=== PATIENT | male | born 1975 | race Caucasian/White ===

== ENCOUNTER 2018-02-03 14:32 | Observation (INO) ==
[2018-02-03] MEDS ORDERED: D5% in Water 1,000 ML IVC PRN (18:39)
[2018-02-03] MEDS ORDERED: Dextrose Gel 15 GM/37.5 ML TUBE PO PRN ×2 (18:39)
[2018-02-03] MEDS ORDERED: *HR* Dextrose 50 % in Water (Syg) 50 ML SYRINGE IVP PRN (18:39)
[2018-02-03] MEDS: 0.9 % Sodium Chloride w KCl 20 MEQ/1,000 ML MLS IVC SCH (18:55)
[2018-02-03 19:59] LABS: BUN/Creatinine Ratio 16 (6-26); Blood Urea Nitrogen 15 mg/dL (6-20); Calcium 8.7 mg/dL (8.6-10.3); Carbon Dioxide 26 mEq/L (23-29); Chloride 105 mEq/L (98-107); Glucose 156 mg/dL (70-105); Osmolality,Calculated 284 (280-300); Potassium 4.3 mEq/L (3.5-5.1); Sodium 135 mEq/L (136-145); eGFR For Non-African Americans > 60 (> 60)
[2018-02-03] MEDS ORDERED: Naloxone 0.4 MG/ML INJ IVP PRN (20:20)
[2018-02-03] MEDS ORDERED: Insulin DETEMIR 100 UNIT/ML X5UNITS SQ ONE (20:22)
--- NOTE | 2018-02-03 20:26 | Internal Med History&Physical ---
Addendum entered and electronically signed by Dm Khalil MD 02/04/18 05:30: I saw and evaluated the patient. I reviewed the residents note, performed my own physical examination and agree with findings and plan as documented in the residents note. Patient seen and examined on 02/03/18. Patient has improved blood sugars, now off insulin drip. Unclear what triggered his hyperglycemia. Does have history of HIV and hep C however. Will continue to monitor, repeat labs in the morning. Original Note: Date of Encounter: 02/04/18 Time of Encounter: 20:10 Internal Medicine - H&P: HPI Chief complaint: Hyperglycemia Admitted From: Hospital to Hospital Transfer Plans for Post Hospital Care: Home History of present illness: Mr. Duran is a 42 year old male with a history of diabetes mellitus type 2, central sleep apnea, HIV, hepatitis C, who presents to [facility] from [facility] for complaint of hyperglycemia for approximately 3 days. The patient s tates that for the past 3 days he has been experiencing elevated blood glucose which she cannot control with his usual insulin dosing. He states that he has used long-term insulin in the past and typically is able to control his blood glucose, however for the past 3 days his blood glucose has read high on his glucometer despite use of a sliding scale and normal insulin. He can think of no specific changes that would lead to this, although he does mention that he had colitis at the beginning of January which resulted in the use of antibiotics as well as a prednisone taper, however that finished by 01/17/18, and he feels that his blood glucose was controlled throughout the entirety of that taper. Since his blood glucose has been elevated, he has been experiencing symptoms such as poor appetite, abdominal pain with nausea, and blurred vision which has not resolved. He also says that he is had excessive thirst and polyuria especially at night. He denies any chest pains or shortness of breath, and he has not had any fevers, chills or sweats. Overall he says that his health has been otherwise well. Nothing seemed to help or make his hyperglycemia worse. The patient does have a history of HIV for which he has been receiving new treatment, however it is still poorly controlled. He states that he has had a high viral load recently, and has been leukopenic as well. In addition to this, he has a history of hepatitis C which he has not been treated for as his petrology teacher wants to wait for his HIV to be under control. He says that his DM has been well controlled on lantus and humalog, with his last A1c in 10.18 reading 6.4 At [facility], the patient had a BMP that demonstrated serum sodium 1:30, potassium 4.3, chloride 96, bicarbonate 27, BUN/creatinine 16, serum creatinine 1.4, serum glucose 632. Anion gap 7. CBC demonstrated leukocyte 2.6, hemoglobin 13.7, hematocrit 40.4, platelet 55. LFTs demonstrated albumin 3, alkaline phosphatase 553, AST 129, ALT 131, bilirubin 2.7. A chest x-ray completed at [facility] demonstrated no acute intrapulmonary process. Social History: Lives with Parents, Denies tobacco, alochol, drug use. Worked in a factory, now unemployed. Family History: Mother and father both have DM Past Med Surg Social Fam HX - Past Medical History Medical history: diabetes, renal disease Additional medical history: HEP C. HIV Psychiatric history: bipolar - Past Surgical History Additional surgical history: colonoscopy - Social History Smoking Status: Never smoker Alcohol use: none Drug use: none Internal Medicine - H&P: Meds Bictegrav/Emtricit/Tenofov Ala [Biktarvy 50-200-25 mg Tablet] 1 tab PO DAILY 02/03/18 [History] Buspirone HCl [Buspar] 15 mg PO BID 02/03/18 [History] Insulin Glargine [Lantus] 32 unit HS 02/03/18 [History] [place] Carbonate 300 mg PO BID 02/03/18 [History] Lurasidone HCl [Latuda] 60 mg PO DAILY 02/03/18 [History] Novolog Flexpen 1 unit ACHS 02/03/18 [History] Pantoprazole Sodium [Protonix] 40 mg PO DAILY 02/03/18 [History] hydrOXYzine HCl [Hydroxyzine HCl] 50 mg PO BID 02/03/18 [History] rOPINIRole [Requip] 0.25 mg PO HS 02/03/18 [History] traZODone [TraZODone] 50 mg PO HS 02/03/18 [History] 3 Allergy/AdvReac Type Severity Reaction Status Date / Time codeine Allergy Rash Verified 02/20/15 18:23 All Systems PM: A 10-system review of systems was performed and is negative for pertinent findings except as documented above in the HPI. Review of systems: Constitutional: Denies fevers, chills, weight loss, generalized fatigue Head/Neck: Denies MCCLELLAND, neck stiffness EENT: Denies rhinorrhea, congestion, sore throat. Admits to visual changes including blurriness CVS: Denies chest pain, palpitations, MURRY, orthopnea, edema, PND Pulm: Denies SOB, cough, sputum, hemoptysis, wheezing GI: Denies vomiting, diarrhea, constipation, melena, hematemasis. Admits to nausea and mild abdominal pain : Denies dysuria, urgency, hematuria. Endo: Admits to polyuria, polydipsia Heme: Denies ease of bleeding or bruising MSK: Denies joint pain, limited ROM Skin: Denies rashes, ulcers, color changes Neuro: Denies MCCLELLAND, paresthesias, focal deficits, ataxia - Constitutional Vitals: Temp Pulse Resp BP Pulse Ox 98.5 F 84 18 144/76 97 02/03/18 20:22 02/03/18 20:22 02/03/18 20:22 02/03/18 20:22 02/03/18 20:22 Exam: Gen: Vitals noted. No acute distress. Eyes: anicteric sclerae, moist conjunctivae; no lid-lag; Pupils equal and reactive to light HENT: Atraumatic; oropharynx clear with moist mucous membranes and no mucosal ulcerations; normal hard and soft palate Neck: Trachea midline; supple, no thyromegaly or lymphadenopathy Cardiac: RRR, no murmur, +S1/S2 Pulmonary: Coarse lung sounds bilaterally, no wheezes, rales or rhonchi, equal chest expansion Abdomen: soft, very minimal tenderness to palpation of the right upper quadrant, no guarding. No masses or hepatosplenomegaly MSK: ROM intact, no joint swelling noted Extremities: no BLE edema, nontender calf, no cyanosis or clubbing Skin: Normal temperature, turgor and texture; no rash, ulcers or subcutaneous nodules Neuro: moves all extremities, no focal deficits. Psych: Appropriate mood and behavior. A&Ox3 Internal Med - H&P Results - Labs CBC & Chem 7: 02/04/18 03:17 02/04/18 03:17 Labs: BMP 11/27/18 19:16 Sodium 135 L Potassium 4.3 Chloride 105 Carbon Dioxide 26 BUN 15 Creatinine 0.93 Glucose 156 H Calcium 8.7 - Assessment and plan (1) Type 2 diabetes mellitus with hyperosmolar nonketotic hyperglycemia Current Visit: Yes Status: Acute Assessment and plan: Diabetes mellitus with hyperosmolar hyperglycemic state Patient presented from [facility] with blood glucose 600, initially on insulin drip He has since been able to be transitioned off insulin drip to long-acting insulin with sliding scale insulin It is likely that his abdominal pain and visual disturbances are primarily caused by this extreme harsh elevation in blood glucose The etiology of this HHS is unclear at this time, he does not appear to have any serious infection Given his risk factors including leukopenia in conjunction with HIV and hep C, I will check lactic acid Currently there are no indications for antibiotics at this time Additionally the patient does not appear to be profoundly fluid depleted We will continue long-acting insulin with sliding scale insulin Continue IV fluids with potassium at 100 mL an hour Monitor POC Glucose ACHS (2) HIV (human immunodeficiency virus infection) Current Visit: Yes Status: Acute Assessment and plan: HIV with leukopenia and thrombocytopenia Currently afebrile, no evidence of overlying infection We will continue home antiretroviral therapy (3) Hepatitis C Current Visit: Yes Status: Chronic Assessment and plan: Hepatitis C with Transaminitis, known diagnosis TBili 2.7, Albumin 3, Alk Joseph 553, AST 129, ALT 131 from [facility] Patient has no jaundice or evidence of acute hepatic failure We will monitor him Qualifiers: Viral hepatitis chronicity: chronic Hepatic coma status: without hepatic coma Qualified Code(s): B18.2 - Chronic viral hepatitis C (4) Leukopenia Current Visit: Yes Status: Acute Assessment and plan: Leukopenia secondary to uncontrolled HIV infection Patient does not have fever at this time or evidence of overlying infection Qualifiers: Leukopenia type: neutropenia Neutropenia type: due to infection Qualified Code(s): D70.3 - Neutropenia due to infection (5) Thrombocytopenia Current Visit: Yes Status: Acute Assessment and plan: Thrombocytopenia susepcted secondary to uncontrolled HIV No evidence of bleeding at this time We will check coags in the morning Continue to monitor (6) Acute kidney injury Current Visit: Yes Status: Resolved Assessment and plan: LISANDRO present on arrival to [facility], Serum creatinine 1.4 --> 0.91 Now resolved Continue IVF (7) Bipolar depression Current Visit: No Status: Chronic Assessment and plan: Continue home meds (8) DVT prophylaxis Current Visit: Yes Status: Acute Assessment and plan: SCDs in setting of Thrombocytopenia - Time Spent With Patient Total time spent is greater than 50% in coordination of care (as documented) at patient's floor/unit and/or counseling patient:
[2018-02-03 20:27] LABS: Basophils % 0.7 %; Immature Granulocytes % 0.3 % (0-4)
[2018-02-03 20:29] LABS: Eosinophils # 0.1 K/mcL (0.0-0.6); Eosinophils % 2.7 %; Hematocrit 39.1 % (37.5-50.1); Immature Platelets 1.7 % (1.1-6.1); Lymphocytes # 1.1 K/mcL (0.6-4.6); Lymphocytes % 36.2 %; Mean Corpuscular HGB Conc 33.2 g/dL (31.6-35.5); Mean Corpuscular Hemoglobin 26.5 pg (28.0-33.3); Mean Corpuscular Volume 79.6 fL (83.0-100.0); Mean Platelet Volume 9.8 fL (9.4-12.4); Monocytes # 0.2 K/mcL (0.0-1.3); Neutrophils # 1.6 K/mcL (1.6-8.9); Red Blood Count 4.91 M/mcL (4.19-5.50); Red Cell Distribution Width 14.6 % (11.5-14.5); Segmented Neutrophils % 52.1 %
[2018-02-03 20:36] LABS: Platelet Count 58 K/mcL (140-400)
[2018-02-03 20:44] LABS: Albumin 3.4 g/dL (3.5-5.7); Albumin/Globulin Ratio 0.9 (1.1-2.2); Bilirubin,Indirect 1.3 mg/dL (0.0-1.2); Bilirubin,Total 2.3 mg/dL (0.3-1.0); Total Protein 7.4 g/dL (6.4-8.9)
[2018-02-03] MEDS ORDERED: rOPINIRole 0.25 MG TABLET PO SCH (21:00)
[2018-02-03] MEDS ORDERED: traZODone 50 MG TABLET PO SCH (21:00)
[2018-02-03] MEDS ORDERED: Insulin LISPRO 300 UNITS/3 ML VIAL SQ SCH (21:00)
[2018-02-03] MEDS ORDERED: Ondansetron 4 MG/2 ML VIAL IVP PRN (21:31)
[2018-02-03] MEDS ORDERED: *HR* Heparin 5,000 UNIT/ML VIAL SQ SCH (22:00)
[2018-02-03] MEDS: hydrOXYzine pamoate 25 MG CAPSULE PO SCH (22:07)
[2018-02-03] MEDS: Lithium Carbonate 300 MG CAPSULE PO SCH (22:07)
[2018-02-04 03:44] LABS: Basophils % 0.4 %; Eosinophils # 0.1 K/mcL (0.0-0.6); Eosinophils % 3.3 %; Hematocrit 36.9 % (37.5-50.1); Hemoglobin 12.3 g/dL (12.9-16.9); Immature Granulocytes % 1.2 % (0-4); Lymphocytes # 0.9 K/mcL (0.6-4.6); Lymphocytes % 37.7 %; Mean Corpuscular HGB Conc 33.3 g/dL (31.6-35.5); Mean Corpuscular Volume 80.9 fL (83.0-100.0); Mean Platelet Volume 10.2 fL (9.4-12.4); Monocytes # 0.2 K/mcL (0.0-1.3); Monocytes % 8.2 %; Neutrophils # 1.2 K/mcL (1.6-8.9); Red Blood Count 4.56 M/mcL (4.19-5.50); Red Cell Distribution Width 14.5 % (11.5-14.5); Segmented Neutrophils % 49.2 %
[2018-02-04 03:45] LABS: Platelet Count 50 K/mcL (140-400)
[2018-02-04 03:46] LABS: Prothrombin Time 11.7 Seconds (9.4-12.1)
[2018-02-04 04:00] LABS: BUN/Creatinine Ratio 16 (6-26); Blood Urea Nitrogen 15 mg/dL (6-20); Calcium 8.4 mg/dL (8.6-10.3); Carbon Dioxide 24 mEq/L (23-29); Chloride 107 mEq/L (98-107); Glucose 323 mg/dL (70-105); Osmolality,Calculated 289 (280-300); Potassium 4.4 mEq/L (3.5-5.1); Sodium 133 mEq/L (136-145); eGFR For Non-African Americans > 60 (> 60)
[2018-02-04] MEDS: 0.9 % Sodium Chloride w KCl 20 MEQ/1,000 ML MLS IVC SCH (04:26)
[2018-02-04 07:26] VITALS: BP 97/54
[2018-02-04] MEDS ORDERED: Insulin LISPRO 300 UNITS/3 ML VIAL SQ SCH (07:30)
[2018-02-04] MEDS: hydrOXYzine pamoate 25 MG CAPSULE PO SCH (07:54)
[2018-02-04] MEDS: Lithium Carbonate 300 MG CAPSULE PO SCH (07:54)
[2018-02-04] MEDS ORDERED: (Bictegrav/Emtricit/Tenofov Ala [Biktarvy 50-200-25 MG]) PO SCH (09:00)
--- NOTE | 2018-02-04 09:25 | Discharge Summary ---
- NOTES TO OUTPATIENT PROVIDER Notes to Outpatient Provider: Patient was admitted for hyperglycemia, no DKA, his insulin has been increased. Hyperglycemia is likely due to new use of HAART for HIV. No evidence on infection, no DKA. Follow up with PCP. Eductaed about plan of care, verbalized understanding Date of Encounter: 02/04/18 Time of Encounter: 09:24 - Discharge Diagnosis (1) DVT prophylaxis Priority: Primary Status: Resolved (2) HIV (human immunodeficiency virus infection) Priority: Secondary Status: Chronic (3) Leukopenia Priority: Secondary Status: Chronic Qualifiers: Leukopenia type: neutropenia Neutropenia type: due to infection Qualified Code(s): D70.3 - Neutropenia due to infection (4) Thrombocytopenia Priority: Secondary Status: Chronic (5) Type 2 diabetes mellitus with hyperosmolar nonketotic hyperglycemia Priority: Primary Status: Acute (6) Bipolar depression Priority: Secondary Status: Chronic (7) Hepatitis C Priority: Secondary Status: Chronic Qualifiers: Viral hepatitis chronicity: chronic Hepatic coma status: without hepatic coma Qualified Code(s): B18.2 - Chronic viral hepatitis C (8) Acute kidney injury Priority: Primary Status: Resolved Hospital course: Mr. Duran is a 42 year old male with DM on insulin, HIV/AIDS, Chronic Hep C, Bipolar disorder, sleep apnea Patient had just started on HAART less than a month ago. He reports noticing persistently elevated blood sugars in the 400s -500s on his glucometer at home, associated with polyuria , blurred vision, polydipsia, headaches and increased thirst. He reports compliance with his meds and diet , the only new development is his begining of HAART. He presented to [facility] ER where he was noted with a BMP that demonstrated serum sodium 1:30, potassium 4.3, chloride 96, bicarbonate 27, BUN/creatinine 16, serum creatinine 1.4, serum glucose 632. Anion gap 7. CBC demonstrated leukocyte 2.6, hemoglobin 13.7, hematocrit 40.4, platelet 55. LFTs demonstrated albumin 3, alkaline phosphatase 553, AST 129, ALT 131, bilirubin 2.7. A chest x-ray completed at [facility] demonstrated no acute intrapulmonary process. He was transferred here for further management Upon presentaton, FS had improved on insulin infusion and LISANDRO had resolved. He was observed overnight on his home doses of insulin Work up here essentially at baseline. He is known pancytopenia due to hep C and HIV He was seen and evaluated this mrn, he had no new complains, and his FS is currently between 200-300. His blurred vision is improved, he continues to have mild headaches improved with tylenol He is not in DKA and has no evidence of infection Vitals are stable and physical exam is unremarkable He is discharged home with recommendations to continue his sliding scale insulin, but increase glargine to 40 units HS. Follow up with PCP recommended Verbalized understanding of plan of care Discharge discussed with: patient, nurse - Time Spent with Patient Total time spent providing and/or coordinating discharge services: Less than 30 minutes - Discharge Medications Prescriptions: Insulin Glargine [Lantus] 40 unit SQ HS #2 vial Home Medications: Bictegrav/Emtricit/Tenofov Ala [Biktarvy 50-200-25 mg Tablet] 1 tab PO DAILY 02/03/18 [History] Buspirone HCl [Buspar] 15 mg PO BID 02/03/18 [History] [place] Carbonate 300 mg PO BID 02/03/18 [History] Lurasidone HCl [Latuda] 60 mg PO DAILY 02/03/18 [History] Novolog Flexpen 1 unit ACHS 02/03/18 [History] Pantoprazole Sodium [Protonix] 40 mg PO DAILY 02/03/18 [History] hydrOXYzine HCl [Hydroxyzine HCl] 50 mg PO BID 02/03/18 [History] rOPINIRole [Requip] 0.25 mg PO HS 02/03/18 [History] traZODone [TraZODone] 50 mg PO HS 02/03/18 [History] Acetaminophen [Tylenol] 500 mg PO Q6HR PRN tablet 02/04/18 [Rx] Insulin Glargine [Lantus] 40 unit SQ HS #2 vial 02/04/18 [Rx] Allergies/Adverse Reactions: Allergy/AdvReac Type Severity Reaction Status Date / Time codeine Allergy Rash Verified 02/20/15 18:23 Date of admission: 02/03/18 16:01 Primary care physician: Nina Roldan, Discharging clinician: Martin Lugo Anticipated date of discharge: 02/04/18 - Constitutional Vitals: Temp Pulse Resp BP Pulse Ox 97.8 F 58 18 97/54 97 02/04/18 07:18 02/04/18 07:43 02/04/18 07:18 02/04/18 07:18 02/04/18 07:18 General appearance: Present: A&O X 3, pleasant, no acute distress, obese Exam: see below - Head Head exam: Present: atraumatic, normocephalic - Eye Eye exam: Present: PERRL, conjuntiva pink, sclera anicteric Pupils: Present: PERRL - Neck Neck exam general surgery: Present: supple, trachea midline. Absent: lymphadenopathy - Respiratory Respiratory exam: Present: CTAB. Absent: accessory muscle use, rales, rhonchi, wheezes - Cardiovascular Cardiovascular exam: Present: RRR, +S1, +S2. Absent: diastolic murmur, gallop, rubs, systolic murmur - GI/Abdominal GI/Abdominal exam: Present: normal bowel sounds, soft, no peritoneal signs. A bsent: distended, tenderness - Extremities Exam Extremities exam: Present: warm, radial pulses palpable and symmetrical. Absent: calf tenderness, cyanotic, pedal edema - Neurological Exam Neurological exam: Present: CN II-XII intact, oriented X3, no focal deficits. Absent: pronater drift, facial droop, speech deficit - Skin Skin exam: Present: dry, intact - Patient Status Disposition: Home, Self-Care Condition: Good Functional capacity at discharge: independent ambulation Overall status at discharge: patient is back to baseline - Discharge Instructions Instructions: Diabetes Mellitus Type 2 in Adults (DC) Follow Up With: Nina Roldan CNP [Primary Care Provider] - 02/11/18 1:00 pm - Diet and Activity Activity: resume usual activities as tolerated Diet: diabetic diet
[2018-02-04] MEDS ORDERED: Insulin DETEMIR 100 UNIT/ML X5UNITS SQ SCH (21:00)
== END 2018-02-04 10:00 | disposition home or self-care (01) ==
LOC: 2NNU
PROVIDERS: ADMIT Internal Medicine Cardiovascular Disease; ATTEND Internal Medicine Cardiovascular Disease

== ENCOUNTER 2019-02-18 17:37 | Inpatient (IN) ==
[2019-02-18 18:09] LABS: Bilirubin,Urine Negative (Negative); Blood,Urine Negative (Negative); Clarity,Urine Clear (Clear); Color,Urine Yellow (Yellow); Glucose,Urine (UA) >=1000 mg/dL (Normal); Ketones,Urine Negative (Negative); Leukocyte Esterase,Urine Negative (Negative); Nitrite,Urine Negative (Negative); Protein,Urine Negative (Neg-Trace); Specific Gravity,Urine 1.029 (1.010-1.025); Urobilinogen,Urine Normal (Normal)
[2019-02-18 18:16] LABS: Amphetamine Screen,Urine Negative ng/mL (Cutoff=1000); Barbiturate Screen,Urine Negative ng/mL (Cutoff=200); Benzodiazepines Screen,Urine Negative ng/mL (Cutoff=200); Cannabinoid Screen,Urine Negative ng/mL (Cutoff = 50); Cocaine Screen,Urine Negative ng/mL (Cutoff= 300); Opiate Screen,Urine Negative ng/mL (Cutoff=300); Phencyclidine Screen,Urine Negative ng/mL (Cutoff=25)
[2019-02-18 18:19] LABS: Hemoglobin 14.6 g/dL (12.9-16.9); Immature Granulocytes % 0.4 % (0-4); Red Cell Distribution Width 13.6 % (11.5-14.5)
[2019-02-18 18:21] LABS: Basophils % 0.8 %; Eosinophils % 1.1 %; Hematocrit 41.7 % (37.5-50.1); Immature Platelets 1.5 % (1.1-6.1); Lymphocytes # 0.6 K/mcL (0.6-4.6); Lymphocytes % 23.4 %; Mean Corpuscular Hemoglobin 30.4 pg (28.0-33.3); Mean Corpuscular Volume 86.9 fL (83.0-100.0); Mean Platelet Volume 9.3 fL (9.4-12.4); Monocytes # 0.2 K/mcL (0.0-1.3); Monocytes % 6.5 %; Neutrophils # 1.8 K/mcL (1.6-8.9); Segmented Neutrophils % 67.8 %; White Blood Count 2.6 K/mcL (4.3-11.1)
[2019-02-18 18:22] LABS: Platelet Count 81 K/mcL (140-400)
[2019-02-18 18:40] LABS: Acetaminophen < 10 mcg/mL (10-20); BUN/Creatinine Ratio 10 (6-26); Blood Urea Nitrogen 12 mg/dL (6-20); Calcium 9.6 mg/dL (8.6-10.3); Carbon Dioxide 21 mEq/L (23-29); Chloride 103 mEq/L (98-107); Ethanol < 10 mg/dL (Less than 10); Glucose 251 mg/dL (70-105); Osmolality,Calculated 288 (280-300); Potassium 3.9 mEq/L (3.5-5.1); Salicylate < 2.5 mg/dL (15.0-30.0); Sodium 135 mEq/L (136-145); eGFR For African Americans > 60 (> 60); eGFR For Non-African Americans > 60 (> 60)
[2019-02-18] MEDS ORDERED: *HR* LORazepam 1 MG TABLET PO PRN (22:52)
[2019-02-18] MEDS ORDERED: hydrOXYzine pamoate 25 MG CAPSULE PO PRN (22:52)
[2019-02-18] MEDS ORDERED: Ibuprofen 400 MG TABLET PO PRN (22:52)
[2019-02-18] MEDS ORDERED: *HR* LORazepam 2 MG/ML VIAL IM PRN (22:52)
[2019-02-18] MEDS ORDERED: Haloperidol Lactate 5 MG/ML VIAL IM PRN (22:52)
[2019-02-18] MEDS ORDERED: Mag Hydrox/Al Hydrox/Simeth 30 ML UDC PO PRN (22:52)
[2019-02-18] MEDS: traZODone 50 MG TABLET PO PRN (23:19)
[2019-02-19] MEDS ORDERED: Lithium Carbonate 300 MG CAPSULE PO SCH ×2 (09:00→21:00)
[2019-02-19] MEDS: *HR* Metformin 500 MG TABLET PO SCH ×2 (09:32→17:54)
[2019-02-19] MEDS: Insulin DETEMIR 100 UNIT/ML X5UNITS SQ SCH (21:44)
[2019-02-19] MEDS: traZODone 50 MG TABLET PO PRN (21:46)
[2019-02-19] MEDS: hydrOXYzine pamoate 25 MG CAPSULE PO PRN (21:46)
[2019-02-19] MEDS: Lithium Carbonate 300 MG CAPSULE PO SCH (21:47)
[2019-02-20] MEDS: *HR* Metformin 500 MG TABLET PO SCH ×2 (09:52→17:47)
[2019-02-20] MEDS: Lithium Carbonate 300 MG CAPSULE PO SCH ×2 (09:53→21:29)
[2019-02-20] MEDS: hydrOXYzine pamoate 25 MG CAPSULE PO PRN (12:50)
[2019-02-20] MEDS: Insulin DETEMIR 100 UNIT/ML X5UNITS SQ SCH (22:00)
[2019-02-21] MEDS: *HR* Metformin 500 MG TABLET PO SCH ×2 (09:03→17:00)
[2019-02-21] MEDS: Lithium Carbonate 300 MG CAPSULE PO SCH ×2 (09:03→21:22)
[2019-02-21] MEDS: hydrOXYzine pamoate 25 MG CAPSULE PO PRN ×2 (17:00→21:22)
[2019-02-21] MEDS: Insulin DETEMIR 100 UNIT/ML X5UNITS SQ SCH (21:23)
[2019-02-22] MEDS: *HR* Metformin 500 MG TABLET PO SCH ×2 (08:52→17:31)
[2019-02-22] MEDS: Lithium Carbonate 300 MG CAPSULE PO SCH ×2 (08:52→21:15)
[2019-02-22] MEDS: Insulin DETEMIR 100 UNIT/ML X5UNITS SQ SCH (21:15)
[2019-02-22] MEDS: hydrOXYzine pamoate 25 MG CAPSULE PO PRN (21:15)
[2019-02-23] MEDS: Lithium Carbonate 300 MG CAPSULE PO SCH ×2 (08:30→21:03)
[2019-02-23] MEDS: *HR* Metformin 500 MG TABLET PO SCH ×2 (08:31→16:58)
[2019-02-23] MEDS: BuPROPion XL (24 HR) 150 MG TABLET PO SCH (09:46)
[2019-02-23] MEDS: hydrOXYzine pamoate 25 MG CAPSULE PO PRN ×2 (12:09→21:03)
[2019-02-23] MEDS: Insulin DETEMIR 100 UNIT/ML X5UNITS SQ SCH (21:05)
[2019-02-24] MEDS: Lithium Carbonate 300 MG CAPSULE PO SCH ×2 (08:49→21:32)
[2019-02-24] MEDS: *HR* Metformin 500 MG TABLET PO SCH ×2 (08:50→17:54)
[2019-02-24] MEDS: BuPROPion XL (24 HR) 150 MG TABLET PO SCH (08:50)
[2019-02-24] MEDS ORDERED: Ergocalciferol (VIT D2) 50,000 UNIT (1.25MG) CAP PO SCH (09:00)
[2019-02-24 11:00] LABS: BUN/Creatinine Ratio 18 (6-26); Blood Urea Nitrogen 17 mg/dL (6-20); Calcium 9.4 mg/dL (8.6-10.3); Carbon Dioxide 22 mEq/L (23-29); Chloride 104 mEq/L (98-107); Chol/HDL Ratio 5.8 (0-4.9); Cholesterol 169 mg/dL (< 200); Glucose 219 mg/dL (70-105); HDL Cholesterol 29 mg/dL (40-59); LDL Cholesterol,Calculated 90 mg/dL (0-99); Osmolality,Calculated 292 (280-300); Potassium 4.2 mEq/L (3.5-5.1); Sodium 137 mEq/L (136-145); Triglycerides 252 mg/dL (< 150); eGFR For African Americans > 60 (> 60); eGFR For Non-African Americans > 60 (> 60)
[2019-02-24 11:01] LABS: Thyroid Stimulating Hormone 2.038 mcIU/mL (0.340-5.600)
[2019-02-24 11:18] LABS: Estimated Average Glucose 186 mg/dl
[2019-02-24] MEDS: hydrOXYzine pamoate 25 MG CAPSULE PO PRN (21:32)
[2019-02-24] MEDS: Insulin DETEMIR 100 UNIT/ML X5UNITS SQ SCH (21:36)
[2019-02-25] MEDS: *HR* Metformin 500 MG TABLET PO SCH (08:55)
[2019-02-25] MEDS: BuPROPion XL (24 HR) 150 MG TABLET PO SCH (08:55)
[2019-02-25] MEDS: Lithium Carbonate 300 MG CAPSULE PO SCH (08:55)
[2019-02-25 09:32] VITALS: BP 123/89
== END 2019-02-25 12:20 | disposition home or self-care (01) | DRG 885 ==
LOC: 1ANU 17:37 → EMEROOARM 17:37 → 1ANU 22:14 → SUATTDRO 02-19 12:35
PROVIDERS: ADMIT Psychiatry & Neurology Psychiatry; ATTEND Psychiatry & Neurology Psychiatry

== ENCOUNTER 2019-07-01 09:40 | Inpatient (IN) ==
[2019-07-01] MEDS ORDERED: Isovue-370 500 ML BOTTLE IVP ONE (10:03)
[2019-07-01] MEDS ORDERED: Hyoscyamine 0.5 MG/ML MLS IVP ONE (10:05)
[2019-07-01 10:22] LABS: Bilirubin,Urine Negative (Negative); Blood,Urine Negative (Negative); Clarity,Urine Clear (Clear); Color,Urine Yellow (Yellow); Glucose,Urine (UA) >=1000 mg/dL (Normal); Ketones,Urine Negative (Negative); Leukocyte Esterase,Urine Negative (Negative); Nitrite,Urine Negative (Negative); Protein,Urine Negative (Neg-Trace); Specific Gravity,Urine > 1.030 (1.010-1.025); Urobilinogen,Urine Normal (Normal)
[2019-07-01] MEDS ORDERED: 0.9 % Sodium Chloride 1,000 ML IVC STA (10:38)
[2019-07-01 10:49] LABS: Hematocrit 39.4 % (37.5-50.1); Segmented Neutrophils % 69.7 %
[2019-07-01 10:51] LABS: Basophils % 0.5 %; Eosinophils % 1.4 %; Hemoglobin 12.5 g/dL (12.9-16.9); Immature Granulocytes % 0.5 % (0-4); Immature Platelets 1.3 % (1.1-6.1); Lymphocytes # 0.4 K/mcL (0.6-4.6); Lymphocytes % 19.2 %; Mean Corpuscular HGB Conc 31.7 g/dL (31.6-35.5); Mean Corpuscular Hemoglobin 28.6 pg (28.0-33.3); Mean Corpuscular Volume 90.2 fL (83.0-100.0); Mean Platelet Volume 9.1 fL (9.4-12.4); Monocytes # 0.2 K/mcL (0.0-1.3); Monocytes % 8.7 %; Neutrophils # 1.5 K/mcL (1.6-8.9); Red Blood Count 4.37 M/mcL (4.19-5.50); Red Cell Distribution Width 14.6 % (11.5-14.5); White Blood Count 2.2 K/mcL (4.3-11.1)
[2019-07-01 10:54] LABS: INR 1.1; Prothrombin Time 12.5 Seconds (9.4-12.1)
[2019-07-01 10:56] LABS: Platelet Count 66 K/mcL (140-400)
[2019-07-01 10:58] LABS: Alanine Aminotransferase 65 Units/L (7-52); Albumin 3.6 g/dL (3.5-5.7); Alkaline Phosphatase 217 Units/L (34-104); Aspartate Amino Transferase 80 Units/L (13-39); BUN/Creatinine Ratio 16 (6-26); Bilirubin,Direct 1.7 mg/dL (0.0-0.2); Bilirubin,Indirect 1.6 mg/dL (0.0-1.0); Bilirubin,Total 3.3 mg/dL (0.3-1.0); Blood Urea Nitrogen 16 mg/dL (6-20); Calcium 9.1 mg/dL (8.6-10.3); Carbon Dioxide 24 mEq/L (23-29); Chloride 108 mEq/L (98-107); Globulin 3.6 g/dL (2.4-3.5); Glucose 178 mg/dL (70-105); Lipase 31 Units/L (11-82); Osmolality,Calculated 292 (280-300); Potassium 4.1 mEq/L (3.5-5.1); Sodium 138 mEq/L (136-145); Total Protein 7.2 g/dL (6.4-8.9); eGFR For African Americans > 60 (> 60); eGFR For Non-African Americans > 60 (> 60)
[2019-07-01] MEDS ORDERED: Dicyclomine 20 MG/2 ML AMPUL IM ONE (11:13)
[2019-07-01] MEDS ORDERED: *HR* FentaNYL (PF) 100 MCG/2 ML VIAL IVP ONE (12:42)
[2019-07-01] MEDS ORDERED: Pantoprazole 40 MG VIAL IVP ONE (14:09)
[2019-07-01] MEDS ORDERED: Acetaminophen 325 MG TABLET PO PRN (14:29)
[2019-07-01] MEDS ORDERED: Naloxone 0.4 MG/ML INJ IVP PRN (14:29)
[2019-07-01] MEDS ORDERED: hydrOXYzine pamoate 25 MG CAPSULE PO PRN (14:36)
[2019-07-01] MEDS ORDERED: Dextrose Gel 15 GM/37.5 ML TUBE PO PRN ×2 (14:38)
[2019-07-01] MEDS ORDERED: *HR* Dextrose 50 % in Water (Syg) 50 ML SYRINGE IVP PRN (14:38)
[2019-07-01] MEDS ORDERED: D5% in Water 1,000 ML IVC PRN (14:38)
[2019-07-01] MEDS ORDERED: SODIUM CHLORIDE/NAHCO3/KCL/PEG 4,000 ML SOLN.RECON PO ONE (17:00)
[2019-07-01] MEDS: *HR* HYDROmorphone (PF) 1 MG/ML SYRINGE IVP PRN (17:18)
[2019-07-01] MEDS: Insulin LISPRO 300 UNITS/3 ML VIAL SQ SCH ×2 (17:43→20:31)
[2019-07-01] MEDS: rOPINIRole 0.25 MG TABLET PO SCH (20:16)
[2019-07-01] MEDS: QUEtiapine Fumarate 25 MG TABLET PO SCH (20:16)
[2019-07-01] MEDS: Lithium Carbonate 300 MG CAPSULE PO SCH (20:16)
[2019-07-01] MEDS: Lactulose Oral Soln 20 GM/30 ML UDC PO SCH (20:17)
[2019-07-01] MEDS ORDERED: Lactulose Oral Soln 20 GM/30 ML UDC PO SCH (21:00)
[2019-07-02 04:11] LABS: Eosinophils % 1.8 %
[2019-07-02 04:13] LABS: Alanine Aminotransferase 60 Units/L (7-52); Albumin 3.1 g/dL (3.5-5.7); Alkaline Phosphatase 182 Units/L (34-104); Aspartate Amino Transferase 82 Units/L (13-39); BUN/Creatinine Ratio 16 (6-26); Basophils % 0.6 %; Bilirubin,Direct 2.6 mg/dL (0.0-0.2); Bilirubin,Indirect 2.3 mg/dL (0.0-1.0); Bilirubin,Total 4.9 mg/dL (0.3-1.0); Blood Urea Nitrogen 16 mg/dL (6-20); Calcium 8.7 mg/dL (8.6-10.3); Carbon Dioxide 22 mEq/L (23-29); Chloride 108 mEq/L (98-107); Globulin 3.2 g/dL (2.4-3.5); Glucose 135 mg/dL (70-105); Hematocrit 35.7 % (37.5-50.1); Hemoglobin 11.4 g/dL (12.9-16.9); Immature Platelets 1.5 % (1.1-6.1); Lymphocytes # 0.4 K/mcL (0.6-4.6); Lymphocytes % 25.7 %; Magnesium 1.8 mg/dL (1.6-2.6); Mean Corpuscular HGB Conc 31.9 g/dL (31.6-35.5); Mean Corpuscular Hemoglobin 28.7 pg (28.0-33.3); Mean Corpuscular Volume 89.9 fL (83.0-100.0); Mean Platelet Volume 9.5 fL (9.4-12.4); Monocytes # 0.2 K/mcL (0.0-1.3); Monocytes % 9.4 %; Neutrophils # 1.1 K/mcL (1.6-8.9); Osmolality,Calculated 287 (280-300); Potassium 3.9 mEq/L (3.5-5.1); Red Blood Count 3.97 M/mcL (4.19-5.50); Red Cell Distribution Width 14.8 % (11.5-14.5); Segmented Neutrophils % 62.5 %; Sodium 137 mEq/L (136-145); Total Protein 6.3 g/dL (6.4-8.9); White Blood Count 1.7 K/mcL (4.3-11.1); eGFR For African Americans > 60 (> 60); eGFR For Non-African Americans > 60 (> 60)
[2019-07-02 04:18] LABS: Platelet Count 63 K/mcL (140-400)
[2019-07-02] MEDS: Insulin LISPRO 300 UNITS/3 ML VIAL SQ SCH ×4 (08:19→22:03)
[2019-07-02] MEDS: Lithium Carbonate 300 MG CAPSULE PO SCH ×2 (08:23→21:11)
[2019-07-02] MEDS: BuPROPion XL (24 HR) 150 MG TABLET PO SCH (08:23)
[2019-07-02] MEDS: Lactulose Oral Soln 20 GM/30 ML UDC PO SCH ×2 (08:24→21:11)
[2019-07-02] MEDS: *HR* HYDROmorphone (PF) 1 MG/ML SYRINGE IVP PRN ×2 (08:53→19:09)
[2019-07-02 09:00] LABS: Estimated Average Glucose 143 mg/dl
[2019-07-02] MEDS ORDERED: [UNRECOGNIZED DRUG - OTHER] PO SCH (09:00)
[2019-07-02] MEDS: rOPINIRole 0.25 MG TABLET PO SCH (21:11)
[2019-07-02] MEDS: QUEtiapine Fumarate 25 MG TABLET PO SCH (21:12)
[2019-07-03] MEDS: *HR* HYDROmorphone (PF) 1 MG/ML SYRINGE IVP PRN ×4 (00:17→16:16)
[2019-07-03 05:46] LABS: Basophils % 0.6 %; Hematocrit 35.8 % (37.5-50.1); Hemoglobin 11.4 g/dL (12.9-16.9); Mean Corpuscular HGB Conc 31.8 g/dL (31.6-35.5); Red Cell Distribution Width 14.6 % (11.5-14.5)
[2019-07-03 05:48] LABS: Eosinophils % 1.7 %; Immature Platelets 1.6 % (1.1-6.1); Lymphocytes % 25.1 %; Mean Corpuscular Hemoglobin 28.8 pg (28.0-33.3); Mean Corpuscular Volume 90.4 fL (83.0-100.0); Mean Platelet Volume 8.7 fL (9.4-12.4); Monocytes # 0.2 K/mcL (0.0-1.3); Neutrophils # 1.1 K/mcL (1.6-8.9); Red Blood Count 3.96 M/mcL (4.19-5.50); Segmented Neutrophils % 60.6 %; White Blood Count 1.8 K/mcL (4.3-11.1)
[2019-07-03 05:51] LABS: Lymphocytes # 0.5 K/mcL (0.6-4.6); Platelet Count 64 K/mcL (140-400)
[2019-07-03 06:06] LABS: Alanine Aminotransferase 58 Units/L (7-52); Albumin 3.2 g/dL (3.5-5.7); Alkaline Phosphatase 183 Units/L (34-104); Aspartate Amino Transferase 84 Units/L (13-39); BUN/Creatinine Ratio 15 (6-26); Bilirubin,Total 4.2 mg/dL (0.3-1.0); Blood Urea Nitrogen 16 mg/dL (6-20); Calcium 8.4 mg/dL (8.6-10.3); Carbon Dioxide 25 mEq/L (23-29); Chloride 106 mEq/L (98-107); Globulin 3.1 g/dL (2.4-3.5); Glucose 147 mg/dL (70-105); Osmolality,Calculated 286 (280-300); Potassium 3.8 mEq/L (3.5-5.1); Sodium 136 mEq/L (136-145); Total Protein 6.3 g/dL (6.4-8.9); eGFR For African Americans > 60 (> 60); eGFR For Non-African Americans > 60 (> 60)
[2019-07-03 06:07] LABS: Alanine Aminotransferase 60 Units/L (7-52); Albumin 3.1 g/dL (3.5-5.7); Albumin/Globulin Ratio 0.9 (1.1-2.2); Alkaline Phosphatase 191 Units/L (34-104); Aspartate Amino Transferase 84 Units/L (13-39); BUN/Creatinine Ratio 15 (6-26); Bilirubin,Direct 2.2 mg/dL (0.0-0.2); Bilirubin,Indirect 2.2 mg/dL (0.0-1.0); Bilirubin,Total 4.4 mg/dL (0.3-1.0); Blood Urea Nitrogen 16 mg/dL (6-20); Calcium 8.6 mg/dL (8.6-10.3); Carbon Dioxide 25 mEq/L (23-29); Chloride 108 mEq/L (98-107); Globulin 3.3 g/dL (2.4-3.5); Glucose 138 mg/dL (70-105); Osmolality,Calculated 287 (280-300); Potassium 3.8 mEq/L (3.5-5.1); Sodium 137 mEq/L (136-145); Total Protein 6.4 g/dL (6.4-8.9); eGFR For African Americans > 60 (> 60); eGFR For Non-African Americans > 60 (> 60)
[2019-07-03 06:13] LABS: Platelet Estimate Decreased (Normal)
[2019-07-03] MEDS: Ondansetron 4 MG/2 ML VIAL IVP PRN (07:44)
[2019-07-03] MEDS: Insulin LISPRO 300 UNITS/3 ML VIAL SQ SCH ×4 (07:47→20:17)
[2019-07-03] MEDS: Lactulose Oral Soln 20 GM/30 ML UDC PO SCH ×2 (07:48→20:25)
[2019-07-03] MEDS: Lithium Carbonate 300 MG CAPSULE PO SCH ×2 (07:48→20:25)
[2019-07-03] MEDS: (Bictegrav/Emtricit/Tenofov Ala [Biktarvy 50-200-25 MG]) PO SCH (07:48)
[2019-07-03] MEDS: BuPROPion XL (24 HR) 150 MG TABLET PO SCH (07:49)
[2019-07-03] MEDS: rOPINIRole 0.25 MG TABLET PO SCH (20:24)
[2019-07-03] MEDS: QUEtiapine Fumarate 25 MG TABLET PO SCH (20:26)
[2019-07-03] MEDS: *HR* OxyCODONE Immed Rel 5 MG TABLET PO PRN (20:30)
[2019-07-04 01:06] LABS: Eosinophils % 1.9 %; Immature Granulocytes % 0.5 % (0-4); Red Cell Distribution Width 14.6 % (11.5-14.5)
[2019-07-04 01:08] LABS: Basophils % 0.5 %; Hematocrit 36.8 % (37.5-50.1); Hemoglobin 11.6 g/dL (12.9-16.9); Immature Platelets 1.5 % (1.1-6.1); Lymphocytes # 0.5 K/mcL (0.6-4.6); Lymphocytes % 21.9 %; Mean Corpuscular HGB Conc 31.5 g/dL (31.6-35.5); Mean Corpuscular Hemoglobin 28.4 pg (28.0-33.3); Mean Corpuscular Volume 90.2 fL (83.0-100.0); Mean Platelet Volume 8.8 fL (9.4-12.4); Monocytes # 0.3 K/mcL (0.0-1.3); Monocytes % 11.2 %; Neutrophils # 1.4 K/mcL (1.6-8.9); Platelet Count 64 K/mcL (140-400); Red Blood Count 4.08 M/mcL (4.19-5.50); White Blood Count 2.2 K/mcL (4.3-11.1)
[2019-07-04] MEDS: *HR* OxyCODONE Immed Rel 5 MG TABLET PO PRN ×4 (05:13→17:26)
[2019-07-04] MEDS: Insulin LISPRO 300 UNITS/3 ML VIAL SQ SCH ×4 (07:51→20:52)
[2019-07-04] MEDS: (Bictegrav/Emtricit/Tenofov Ala [Biktarvy 50-200-25 MG]) PO SCH (07:51)
[2019-07-04] MEDS: BuPROPion XL (24 HR) 150 MG TABLET PO SCH (07:52)
[2019-07-04] MEDS: Lactulose Oral Soln 20 GM/30 ML UDC PO SCH ×2 (07:52→20:53)
[2019-07-04] MEDS: Lithium Carbonate 300 MG CAPSULE PO SCH ×2 (07:52→20:52)
[2019-07-04] MEDS: Piperacillin/Tazobactam 3.375 GM in 0.9 % Sodium Chloride Mini Bag 100 ML IVPB SCH (17:59)
[2019-07-04] MEDS: QUEtiapine Fumarate 25 MG TABLET PO SCH (20:52)
[2019-07-04] MEDS: rOPINIRole 0.25 MG TABLET PO SCH (20:52)
[2019-07-05] MEDS: Piperacillin/Tazobactam 3.375 GM in 0.9 % Sodium Chloride Mini Bag 100 ML IVPB SCH ×4 (01:12→23:38)
[2019-07-05 02:21] LABS: Basophils % 0.5 %; Hemoglobin 11.3 g/dL (12.9-16.9)
[2019-07-05 02:23] LABS: Eosinophils # 0.1 K/mcL (0.0-0.6); Eosinophils % 2.5 %; Hematocrit 35.5 % (37.5-50.1); Immature Granulocytes % 0.5 % (0-4); Immature Platelets 1.2 % (1.1-6.1); Lymphocytes # 0.5 K/mcL (0.6-4.6); Lymphocytes % 26.1 %; Mean Corpuscular HGB Conc 31.8 g/dL (31.6-35.5); Mean Corpuscular Hemoglobin 28.7 pg (28.0-33.3); Mean Corpuscular Volume 90.1 fL (83.0-100.0); Mean Platelet Volume 9.3 fL (9.4-12.4); Monocytes # 0.2 K/mcL (0.0-1.3); Monocytes % 10.8 %; Neutrophils # 1.2 K/mcL (1.6-8.9); Red Blood Count 3.94 M/mcL (4.19-5.50); Red Cell Distribution Width 14.6 % (11.5-14.5); Segmented Neutrophils % 59.6 %
[2019-07-05 02:25] LABS: Platelet Count 64 K/mcL (140-400)
[2019-07-05 02:42] LABS: Alanine Aminotransferase 59 Units/L (7-52); Albumin/Globulin Ratio 0.9 (1.1-2.2); Alkaline Phosphatase 181 Units/L (34-104); Aspartate Amino Transferase 90 Units/L (13-39); BUN/Creatinine Ratio 12 (6-26); Bilirubin,Direct 2.9 mg/dL (0.0-0.2); Bilirubin,Indirect 2.2 mg/dL (0.0-1.0); Bilirubin,Total 5.1 mg/dL (0.3-1.0); Blood Urea Nitrogen 15 mg/dL (6-20); Calcium 8.5 mg/dL (8.6-10.3); Carbon Dioxide 24 mEq/L (23-29); Chloride 106 mEq/L (98-107); Globulin 3.2 g/dL (2.4-3.5); Glucose 156 mg/dL (70-105); Magnesium 1.8 mg/dL (1.6-2.6); Osmolality,Calculated 286 (280-300); Potassium 3.9 mEq/L (3.5-5.1); Sodium 136 mEq/L (136-145); Total Protein 6.2 g/dL (6.4-8.9); eGFR For African Americans > 60 (> 60); eGFR For Non-African Americans > 60 (> 60)
[2019-07-05] MEDS: Insulin LISPRO 300 UNITS/3 ML VIAL SQ SCH ×4 (07:45→22:12)
[2019-07-05] MEDS: BuPROPion XL (24 HR) 150 MG TABLET PO SCH (08:42)
[2019-07-05] MEDS: Lithium Carbonate 300 MG CAPSULE PO SCH ×2 (08:42→22:11)
[2019-07-05] MEDS: Lactulose Oral Soln 20 GM/30 ML UDC PO SCH ×3 (08:43→22:11)
[2019-07-05] MEDS: (Bictegrav/Emtricit/Tenofov Ala [Biktarvy 50-200-25 MG]) PO SCH (08:43)
[2019-07-05] MEDS: *HR* OxyCODONE Immed Rel 5 MG TABLET PO PRN (08:47)
[2019-07-05] MEDS ORDERED: SODIUM CHLORIDE/NAHCO3/KCL/PEG 4,000 ML SOLN.RECON PO ONE ×2 (11:37→17:00)
[2019-07-05] MEDS: *HR* HYDROmorphone (PF) 1 MG/ML SYRINGE IVP PRN ×3 (12:38→23:39)
[2019-07-05] MEDS: QUEtiapine Fumarate 25 MG TABLET PO SCH (22:11)
[2019-07-05] MEDS: rOPINIRole 0.25 MG TABLET PO SCH (22:11)
[2019-07-06] MEDS: *HR* HYDROmorphone (PF) 1 MG/ML SYRINGE IVP PRN ×3 (03:47→20:35)
[2019-07-06] MEDS ORDERED: Lidocaine -MPF 2% 2 ML VIAL ONE (06:33)
[2019-07-06 07:08] LABS: Basophils % 0.4 %; Immature Granulocytes % 0.4 % (0-4); Monocytes % 8.7 %
[2019-07-06 07:10] LABS: Eosinophils % 1.7 %; Hematocrit 37.3 % (37.5-50.1); Immature Platelets 1.2 % (1.1-6.1); Lymphocytes # 0.5 K/mcL (0.6-4.6); Lymphocytes % 20.2 %; Mean Corpuscular HGB Conc 32.2 g/dL (31.6-35.5); Mean Corpuscular Hemoglobin 29.2 pg (28.0-33.3); Mean Corpuscular Volume 90.8 fL (83.0-100.0); Mean Platelet Volume 8.9 fL (9.4-12.4); Monocytes # 0.2 K/mcL (0.0-1.3); Neutrophils # 1.7 K/mcL (1.6-8.9); Red Blood Count 4.11 M/mcL (4.19-5.50); Red Cell Distribution Width 14.7 % (11.5-14.5); Segmented Neutrophils % 68.6 %; White Blood Count 2.4 K/mcL (4.3-11.1)
[2019-07-06 07:11] LABS: Platelet Count 71 K/mcL (140-400)
[2019-07-06 07:17] LABS: INR 1.1
[2019-07-06 07:29] LABS: Alanine Aminotransferase 63 Units/L (7-52); Albumin 3.3 g/dL (3.5-5.7); Alkaline Phosphatase 184 Units/L (34-104); Aspartate Amino Transferase 91 Units/L (13-39); BUN/Creatinine Ratio 13 (6-26); Bilirubin,Indirect 3.4 mg/dL (0.0-1.0); Bilirubin,Total 8.4 mg/dL (0.3-1.0); Blood Urea Nitrogen 15 mg/dL (6-20); Calcium 8.6 mg/dL (8.6-10.3); Carbon Dioxide 22 mEq/L (23-29); Chloride 107 mEq/L (98-107); Globulin 3.3 g/dL (2.4-3.5); Glucose 153 mg/dL (70-105); Magnesium 1.8 mg/dL (1.6-2.6); Osmolality,Calculated 286 (280-300); Potassium 4.3 mEq/L (3.5-5.1); Sodium 136 mEq/L (136-145); Total Protein 6.6 g/dL (6.4-8.9); eGFR For African Americans > 60 (> 60); eGFR For Non-African Americans > 60 (> 60)
[2019-07-06] MEDS ORDERED: *HR* Propofol 200 MG/20 ML VIAL IVP ONE (07:37)
[2019-07-06] MEDS: Insulin LISPRO 300 UNITS/3 ML VIAL SQ SCH ×3 (08:00→16:53)
[2019-07-06] MEDS: Lactulose Oral Soln 20 GM/30 ML UDC PO SCH ×3 (11:48→20:38)
[2019-07-06] MEDS: Lithium Carbonate 300 MG CAPSULE PO SCH ×2 (11:49→20:38)
[2019-07-06] MEDS: Piperacillin/Tazobactam 3.375 GM in 0.9 % Sodium Chloride Mini Bag 100 ML IVPB SCH ×2 (11:50→16:37)
[2019-07-06] MEDS: BuPROPion XL (24 HR) 150 MG TABLET PO SCH (11:50)
[2019-07-06] MEDS: (Bictegrav/Emtricit/Tenofov Ala [Biktarvy 50-200-25 MG]) PO SCH (11:51)
[2019-07-06] MEDS: QUEtiapine Fumarate 25 MG TABLET PO SCH (20:37)
[2019-07-06] MEDS: rOPINIRole 0.25 MG TABLET PO SCH (20:38)
[2019-07-07] MEDS: Piperacillin/Tazobactam 3.375 GM in 0.9 % Sodium Chloride Mini Bag 100 ML IVPB SCH ×2 (00:43→10:33)
[2019-07-07] MEDS: Insulin LISPRO 300 UNITS/3 ML VIAL SQ SCH ×5 (03:43→20:48)
[2019-07-07] MEDS: Ondansetron 4 MG/2 ML VIAL IVP PRN ×2 (04:50→17:51)
[2019-07-07] MEDS: *HR* HYDROmorphone (PF) 1 MG/ML SYRINGE IVP PRN (04:50)
[2019-07-07 06:02] LABS: Basophils % 0.6 %; Immature Granulocytes % 0.6 % (0-4); Red Cell Distribution Width 14.7 % (11.5-14.5)
[2019-07-07 06:03] LABS: Eosinophils % 1.7 %; Hematocrit 34.4 % (37.5-50.1); Immature Platelets 1.7 % (1.1-6.1); Lymphocytes # 0.4 K/mcL (0.6-4.6); Lymphocytes % 23.7 %; Mean Corpuscular Hemoglobin 29.2 pg (28.0-33.3); Mean Corpuscular Volume 91.2 fL (83.0-100.0); Mean Platelet Volume 9.4 fL (9.4-12.4); Monocytes # 0.2 K/mcL (0.0-1.3); Monocytes % 10.2 %; Neutrophils # 1.1 K/mcL (1.6-8.9); Red Blood Count 3.77 M/mcL (4.19-5.50); Segmented Neutrophils % 63.2 %; White Blood Count 1.8 K/mcL (4.3-11.1)
[2019-07-07 06:08] LABS: Platelet Count 70 K/mcL (140-400)
[2019-07-07 06:40] LABS: Alanine Aminotransferase 56 Units/L (7-52); Albumin 3.1 g/dL (3.5-5.7); Albumin/Globulin Ratio 0.9 (1.1-2.2); Alkaline Phosphatase 171 Units/L (34-104); Aspartate Amino Transferase 78 Units/L (13-39); BUN/Creatinine Ratio 13 (6-26); Bilirubin,Direct 3.3 mg/dL (0.0-0.2); Bilirubin,Indirect 2.3 mg/dL (0.0-1.0); Bilirubin,Total 5.6 mg/dL (0.3-1.0); Blood Urea Nitrogen 14 mg/dL (6-20); Calcium 8.5 mg/dL (8.6-10.3); Carbon Dioxide 25 mEq/L (23-29); Chloride 108 mEq/L (98-107); Globulin 3.4 g/dL (2.4-3.5); Glucose 168 mg/dL (70-105); Magnesium 1.8 mg/dL (1.6-2.6); Osmolality,Calculated 288 (280-300); Potassium 3.4 mEq/L (3.5-5.1); Sodium 137 mEq/L (136-145); Total Protein 6.5 g/dL (6.4-8.9); eGFR For African Americans > 60 (> 60); eGFR For Non-African Americans > 60 (> 60)
[2019-07-07] MEDS ORDERED: Ergocalciferol (VIT D2) 50,000 UNIT (1.25MG) CAP PO SCH (09:00)
[2019-07-07] MEDS: BuPROPion XL (24 HR) 150 MG TABLET PO SCH (10:32)
[2019-07-07] MEDS: (Bictegrav/Emtricit/Tenofov Ala [Biktarvy 50-200-25 MG]) PO SCH (10:32)
[2019-07-07] MEDS: Lactulose Oral Soln 20 GM/30 ML UDC PO SCH ×3 (10:32→20:48)
[2019-07-07] MEDS: Lithium Carbonate 300 MG CAPSULE PO SCH ×2 (10:33→20:43)
[2019-07-07] MEDS ORDERED: *HR* OxyCODONE Immed Rel 5 MG TABLET PO PRN (12:11)
[2019-07-07] MEDS: *HR* OxyCODONE Immed Rel 5 MG TABLET PO PRN ×2 (13:28→20:46)
[2019-07-07] MEDS: cefTRIAXone 1,000 MG in Water for inj. (sterile) 10 ML IVP SCH (13:29)
[2019-07-07] MEDS: QUEtiapine Fumarate 25 MG TABLET PO SCH (20:43)
[2019-07-07] MEDS: rOPINIRole 0.25 MG TABLET PO SCH (20:43)
[2019-07-07 23:28] LABS: Adenovirus F 40/41 PCR Not detected (Not detect); Astrovirus PCR Not detected (Not detect); C.difficile Toxin A/B Gene PCR Not detected (Not detect); Campylobacter by PCR Not detected (Not detect); Cryptosporidium by PCR Not detected (Not detect); Cyclospora cayetanensis PCR Not detected (Not detect); E. coli O157 by PCR Not detected (Not detect); Entamoeba histolytica PCR Not detected (Not detect); Enteroaggregative E.coli(EAEC) Not detected (Not detect); Enteropathogenic E.coli(EPEC) Not detected (Not detect); Enterotoxigenic E.coli (ETEC) Not detected (Not detect); Giardia lamblia PCR Not detected (Not detect); Norovirus GI/GII PCR Not detected (Not detect); Plesiomonas shigelloides PCR Not detected (Not detect); Rotavirus A PCR Not detected (Not detect); Salmonella PCR Not detected (Not detect); Sapovirus PCR Not detected (Not detect); Shig/EnteroinvasiveE coli EIEC Not detected (Not detect); Shigalike tox-prod E coli STEC Not detected (Not detect); Vibrio PCR Not detected (Not detect); Vibrio cholerae PCR Not detected (Not detect); Yersinia enterocolitica PCR Not detected (Not detect)
[2019-07-08 05:55] LABS: Basophils % 0.6 %
[2019-07-08 05:57] LABS: Eosinophils % 1.8 %; Hemoglobin 10.6 g/dL (12.9-16.9); Immature Platelets 1.4 % (1.1-6.1); Lymphocytes # 0.4 K/mcL (0.6-4.6); Lymphocytes % 25.9 %; Mean Corpuscular HGB Conc 32.1 g/dL (31.6-35.5); Mean Corpuscular Hemoglobin 29.3 pg (28.0-33.3); Mean Corpuscular Volume 91.2 fL (83.0-100.0); Mean Platelet Volume 9.2 fL (9.4-12.4); Monocytes # 0.2 K/mcL (0.0-1.3); Neutrophils # 1.1 K/mcL (1.6-8.9); Red Blood Count 3.62 M/mcL (4.19-5.50); Red Cell Distribution Width 14.3 % (11.5-14.5); Segmented Neutrophils % 61.7 %; White Blood Count 1.7 K/mcL (4.3-11.1)
[2019-07-08 06:01] LABS: Platelet Count 67 K/mcL (140-400)
[2019-07-08 06:23] LABS: Platelet Estimate Decreased (Normal)
[2019-07-08 06:24] LABS: Alanine Aminotransferase 53 Units/L (7-52); Albumin/Globulin Ratio 0.9 (1.1-2.2); Alkaline Phosphatase 158 Units/L (34-104); Aspartate Amino Transferase 74 Units/L (13-39); BUN/Creatinine Ratio 11 (6-26); Bilirubin,Direct 2.1 mg/dL (0.0-0.2); Bilirubin,Indirect 1.7 mg/dL (0.0-1.0); Bilirubin,Total 3.8 mg/dL (0.3-1.0); Blood Urea Nitrogen 12 mg/dL (6-20); Calcium 8.4 mg/dL (8.6-10.3); Carbon Dioxide 24 mEq/L (23-29); Chloride 109 mEq/L (98-107); Globulin 3.2 g/dL (2.4-3.5); Glucose 123 mg/dL (70-105); Magnesium 1.8 mg/dL (1.6-2.6); Osmolality,Calculated 287 (280-300); Potassium 3.5 mEq/L (3.5-5.1); Sodium 138 mEq/L (136-145); Total Protein 6.2 g/dL (6.4-8.9); eGFR For African Americans > 60 (> 60); eGFR For Non-African Americans > 60 (> 60)
[2019-07-08] MEDS: Lithium Carbonate 300 MG CAPSULE PO SCH ×2 (07:53→20:22)
[2019-07-08] MEDS: BuPROPion XL (24 HR) 150 MG TABLET PO SCH (07:53)
[2019-07-08] MEDS: Lactulose Oral Soln 20 GM/30 ML UDC PO SCH ×3 (07:53→20:22)
[2019-07-08] MEDS: cefTRIAXone 1,000 MG in Water for inj. (sterile) 10 ML IVP SCH (07:54)
[2019-07-08] MEDS: Ondansetron 4 MG/2 ML VIAL IVP PRN ×2 (07:54→20:22)
[2019-07-08] MEDS: Insulin LISPRO 300 UNITS/3 ML VIAL SQ SCH ×4 (07:54→20:58)
[2019-07-08] MEDS: (Bictegrav/Emtricit/Tenofov Ala [Biktarvy 50-200-25 MG]) PO SCH (07:56)
[2019-07-08] MEDS: *HR* OxyCODONE Immed Rel 5 MG TABLET PO PRN ×2 (13:36→20:22)
[2019-07-08] MEDS: QUEtiapine Fumarate 25 MG TABLET PO SCH (20:22)
[2019-07-08] MEDS: rOPINIRole 0.25 MG TABLET PO SCH (20:22)
[2019-07-08 22:33] LABS: HCV Quant Log 6.49 log IU/mL
[2019-07-09 06:54] LABS: Alanine Aminotransferase 54 Units/L (7-52); Albumin/Globulin Ratio 0.9 (1.1-2.2); Alkaline Phosphatase 162 Units/L (34-104); Aspartate Amino Transferase 77 Units/L (13-39); BUN/Creatinine Ratio 13 (6-26); Bilirubin,Direct 2.2 mg/dL (0.0-0.2); Bilirubin,Indirect 1.9 mg/dL (0.0-1.0); Bilirubin,Total 4.1 mg/dL (0.3-1.0); Blood Urea Nitrogen 12 mg/dL (6-20); Calcium 8.5 mg/dL (8.6-10.3); Carbon Dioxide 24 mEq/L (23-29); Chloride 110 mEq/L (98-107); Globulin 3.2 g/dL (2.4-3.5); Glucose 114 mg/dL (70-105); Osmolality,Calculated 287 (280-300); Potassium 3.6 mEq/L (3.5-5.1); Sodium 138 mEq/L (136-145); Total Protein 6.2 g/dL (6.4-8.9); eGFR For African Americans > 60 (> 60); eGFR For Non-African Americans > 60 (> 60)
[2019-07-09] MEDS ORDERED: Sulfamethoxazole/Trimeth DS 1 EACH TABLET PO SCH (09:00)
[2019-07-09] MEDS: Insulin LISPRO 300 UNITS/3 ML VIAL SQ SCH ×2 (09:15→11:40)
[2019-07-09] MEDS: cefTRIAXone 1,000 MG in Water for inj. (sterile) 10 ML IVP SCH (09:22)
[2019-07-09] MEDS: Lithium Carbonate 300 MG CAPSULE PO SCH (09:23)
[2019-07-09] MEDS: Lactulose Oral Soln 20 GM/30 ML UDC PO SCH (09:23)
[2019-07-09] MEDS: BuPROPion XL (24 HR) 150 MG TABLET PO SCH (09:23)
[2019-07-09] MEDS: (Bictegrav/Emtricit/Tenofov Ala [Biktarvy 50-200-25 MG]) PO SCH (09:24)
[2019-07-09 10:42] LABS: HCV Quant Interpretation DETECTED (Not Detected)
[2019-07-09 11:03] VITALS: BP 120/71
== END 2019-07-09 13:12 | disposition home or self-care (01) | DRG 432 ==
LOC: EMEROOARM 09:40 → 3ANU 09:40 → SUATTDRO 14:01 → 3ANU 14:36 → 2NENU 17:57 → SUATTDRO 07-02 16:33 → 3ANU 07-02 20:21
PROVIDERS: ADMIT Pharmacist; ATTEND Internal Medicine
PROC: ENDOEBX (2019-07-06 11:20)

== ENCOUNTER 2020-11-25 13:57 | Observation (INO) ==
[2020-11-25] MEDS ORDERED: *HR* FentaNYL (PF) 100 MCG/2 ML VIAL IVP ONE (14:48)
[2020-11-25] MEDS ORDERED: Ondansetron 4 MG/2 ML VIAL IVP ONE ×2 (14:48→17:01)
[2020-11-25 15:00] LABS: Bilirubin,Urine Negative (Negative); Blood,Urine Negative (Negative); Clarity,Urine Clear (Clear); Color,Urine Yellow (Yellow); Glucose,Urine (UA) Normal (Normal); Ketones,Urine Negative (Negative); Leukocyte Esterase,Urine Negative (Negative); Mucus,Urine Few per lpf (None-Few); Nitrite,Urine Negative (Negative); Protein,Urine 50 mg/dL (Neg-Trace); RBC,Urine 0-3 per hpf (0-3); Specific Gravity,Urine 1.022 (1.010-1.025); Squamous Epithelial Cell,Urine Few per hpf (None-Few); Urobilinogen,Urine Normal (Normal); WBC,Urine 0-3 per hpf (0-3)
[2020-11-25 15:03] LABS: Hematocrit 29.9 % (37.5-50.1); Hemoglobin 10.4 g/dL (12.9-16.9); Mean Corpuscular HGB Conc 34.8 g/dL (31.6-35.5); Mean Corpuscular Volume 89.3 fL (83.0-100.0); Red Blood Count 3.35 M/mcL (4.19-5.50)
[2020-11-25 15:05] LABS: Immature Platelets 1.5 % (1.1-6.1); Mean Platelet Volume 10.2 fL (9.4-12.4); Nucleated Red Blood Cells 1.2 /100 WBC (0); Platelet Count 83 K/mcL (140-400); Red Cell Distribution Width 16.8 % (11.5-14.5); White Blood Count 6.8 K/mcL (4.3-11.1)
[2020-11-25 15:12] LABS: Albumin 4.4 g/dL (3.5-5.7); Albumin/Globulin Ratio 1.8 (1.1-2.2); Bilirubin,Direct 0.1 mg/dL (0.0-0.2); Bilirubin,Indirect 0.4 mg/dL (0.0-1.0); Bilirubin,Total 0.5 mg/dL (0.3-1.0); Calcium 8.8 mg/dL (8.6-10.3); Globulin 2.4 g/dL (2.4-3.5); Potassium 4.6 mEq/L (3.5-5.1); Total Protein 6.8 g/dL (6.4-8.9)
[2020-11-25 15:32] LABS: Lymphocytes # 1.4 K/mcL (0.6-4.6); Monocytes # 0.5 K/mcL (0.0-1.3); Neutrophils # 4.9 K/mcL (1.6-8.9); Platelet Estimate Slight Decrease (Normal)
[2020-11-25 18:06] LABS: Influenza A PCR Negative (Negative); Influenza B PCR Negative (Negative); Resp. Syncytial Virus PCR Negative (Negative)
[2020-11-25 18:07] LABS: SARS-CoV-2 by PCR (In House) Negative (Negative)
[2020-11-25] MEDS ORDERED: *HR* Promethazine 25 MG/ML VIAL IM ONE (21:28)
[2020-11-25] MEDS ORDERED: Morphine Sulfate 2 MG/ML SYRINGE IVP ONE (21:28)
[2020-11-25 21:37] VITALS: O2SAT 100
[2020-11-26] MEDS ORDERED: Naloxone 0.4 MG/ML INJ IVP PRN (07:03)
[2020-11-26] MEDS ORDERED: *HR* Promethazine 25 MG/ML VIAL IM PRN (07:03)
[2020-11-26] MEDS ORDERED: 0.9 % Sodium Chloride 1,000 ML IVC ONE (07:18)
[2020-11-26] MEDS: Ondansetron 4 MG/2 ML VIAL IVP PRN ×2 (08:10→15:40)
[2020-11-26] MEDS: Morphine Sulfate 2 MG/ML SYRINGE IVP PRN ×2 (08:11→15:41)
[2020-11-26 10:08] LABS: Red Cell Distribution Width 16.5 % (11.5-14.5); White Blood Count 4.9 K/mcL (4.3-11.1)
[2020-11-26 10:10] LABS: Hematocrit 28.3 % (37.5-50.1); Hemoglobin 9.9 g/dL (12.9-16.9); Immature Platelets 1.2 % (1.1-6.1); Mean Corpuscular Hemoglobin 30.8 pg (28.0-33.3); Mean Corpuscular Volume 88.2 fL (83.0-100.0); Mean Platelet Volume 9.4 fL (9.4-12.4); Nucleated Red Blood Cells 0.4 /100 WBC (0); Red Blood Count 3.21 M/mcL (4.19-5.50)
[2020-11-26 10:13] LABS: Platelet Count 71 K/mcL (140-400)
[2020-11-26 10:18] LABS: INR 1.1; Prothrombin Time 11.9 Seconds (9.4-12.1)
[2020-11-26 10:20] LABS: Activated Partial Thrombo Time 34.1 Seconds (26.0-36.0)
[2020-11-26 10:23] LABS: Albumin 4.2 g/dL (3.5-5.7); Albumin/Globulin Ratio 2.2 (1.1-2.2); Bilirubin,Total 0.5 mg/dL (0.3-1.0); Globulin 1.9 g/dL (2.4-3.5); Magnesium 1.7 mg/dL (1.6-2.6); Phosphorous 3.7 mg/dL (2.7-4.5); Potassium 4.8 mEq/L (3.5-5.1); Total Protein 6.1 g/dL (6.4-8.9)
[2020-11-26 10:41] LABS: Lymphocytes # 0.7 K/mcL (0.6-4.6); Monocytes # 0.4 K/mcL (0.0-1.3); Neutrophils # 3.4 K/mcL (1.6-8.9); Platelet Estimate Decreased (Normal)
[2020-11-26 11:26] VITALS: BP 133/80; PULSE 86; TEMP 98.8
== END 2020-11-26 18:15 | disposition short-term general hospital (02) ==
LOC: CDU 13:57 → EMEROOARM 13:57 → SUATTDRO 11-26 05:57 → CDU 11-26 07:00
PROVIDERS: ADMIT Family Medicine; ATTEND Internal Medicine

== ENCOUNTER 2021-05-14 16:59 | Inpatient (IN) ==
[2021-05-14 19:34] LABS: Basophils % 1.1 %; Immature Granulocytes % 1.8 % (0-4); Red Cell Distribution Width 15.9 % (11.5-14.5)
[2021-05-14 19:36] LABS: Eosinophils % 1.4 %; Hematocrit 29.8 % (37.5-50.1); Hemoglobin 10.2 g/dL (12.9-16.9); Immature Platelets 1.1 % (1.1-6.1); Lymphocytes # 0.7 K/mcL (0.6-4.6); Lymphocytes % 25.8 %; Mean Corpuscular HGB Conc 34.2 g/dL (31.6-35.5); Mean Corpuscular Hemoglobin 28.9 pg (28.0-33.3); Mean Corpuscular Volume 84.4 fL (83.0-100.0); Mean Platelet Volume 9.3 fL (9.4-12.4); Monocytes # 0.3 K/mcL (0.0-1.3); Monocytes % 12.2 %; Neutrophils # 1.6 K/mcL (1.6-8.9); Nucleated Red Blood Cells 0.7 /100 WBC (0); Platelet Count 111 K/mcL (140-400); Red Blood Count 3.53 M/mcL (4.19-5.50); Segmented Neutrophils % 57.7 %; White Blood Count 2.8 K/mcL (4.3-11.1)
[2021-05-14 19:51] LABS: Albumin 4.4 g/dL (3.5-5.7); Bilirubin,Direct 0.1 mg/dL (0.0-0.2); Bilirubin,Indirect 0.4 mg/dL (0.0-1.0); Bilirubin,Total 0.5 mg/dL (0.3-1.0); Calcium 8.8 mg/dL (8.6-10.3); Globulin 2.2 g/dL (2.4-3.5); Magnesium 1.7 mg/dL (1.6-2.6); Phosphorous 3.3 mg/dL (2.7-4.5); Potassium 4.9 mEq/L (3.5-5.1); Total Protein 6.6 g/dL (6.4-8.9)
[2021-05-14 19:53] LABS: Prothrombin Time 10.9 Seconds (9.4-12.1)
[2021-05-14] MEDS ORDERED: cefTRIAXone 2,000 MG in 0.9 % Sodium Chloride Mini Bag 100 ML IVPB ONE (19:59)
[2021-05-14 20:14] LABS: Bilirubin,Urine Negative (Negative); Blood,Urine Negative (Negative); Clarity,Urine Clear (Clear); Color,Urine Light-Yellow (Yellow); Glucose,Urine (UA) Normal (Normal); Ketones,Urine Negative (Negative); Leukocyte Esterase,Urine Negative (Negative); Nitrite,Urine Negative (Negative); Protein,Urine Trace mg/dL (Neg-Trace); Specific Gravity,Urine 1.019 (1.010-1.025); Urobilinogen,Urine Normal (Normal)
[2021-05-14 21:17] LABS: Influenza A PCR Negative (Negative); Influenza B PCR Negative (Negative); Resp. Syncytial Virus PCR Negative (Negative)
[2021-05-14 21:28] LABS: SARS-CoV-2 by PCR (In House) Negative (Negative)
[2021-05-14] MEDS ORDERED: Piperacillin/Tazobactam 3.375 GM in 0.9 % Sodium Chloride Mini Bag 100 ML IVPB ONE (22:14)
[2021-05-15] MEDS ORDERED: Ondansetron ODT 4 MG TAB.RAPDIS SL PRN ×2 (00:53→13:35)
[2021-05-15] MEDS ORDERED: Melatonin 3 MG TABLET PO PRN (00:53)
[2021-05-15] MEDS ORDERED: Naloxone 0.4 MG/ML INJ IVP PRN (00:53)
[2021-05-15] MEDS ORDERED: Acetaminophen 325 MG TABLET PO PRN (02:07)
[2021-05-15] MEDS: QUEtiapine Fumarate 100 MG TABLET PO SCH ×2 (02:13→21:05)
[2021-05-15] MEDS: Tacrolimus [Prograf] 1 MG PO SCH ×3 (02:14→21:07)
[2021-05-15] MEDS ORDERED: Dextrose 4 GM Chewable Tablets PO PRN ×2 (02:39)
[2021-05-15] MEDS ORDERED: *HR* Dextrose 50 % in Water (Syg) 50 ML SYRINGE IVP PRN (02:39)
[2021-05-15] MEDS ORDERED: D5% in Water 1,000 ML IVC PRN (02:39)
[2021-05-15] MEDS ORDERED: 0.9 % Sodium Chloride 1,000 ML IVC ONE (02:43)
[2021-05-15 05:07] LABS: Mean Corpuscular HGB Conc 34.4 g/dL (31.6-35.5); Red Cell Distribution Width 15.9 % (11.5-14.5)
[2021-05-15 05:09] LABS: Basophils % 1.3 %; Eosinophils % 1.3 %; Hematocrit 29.4 % (37.5-50.1); Hemoglobin 10.1 g/dL (12.9-16.9); Immature Granulocytes % 3.8 % (0-4); Immature Platelets 1.4 % (1.1-6.1); Lymphocytes # 0.7 K/mcL (0.6-4.6); Mean Corpuscular Hemoglobin 28.9 pg (28.0-33.3); Mean Platelet Volume 9.4 fL (9.4-12.4); Monocytes # 0.3 K/mcL (0.0-1.3); Monocytes % 10.4 %; Neutrophils # 1.3 K/mcL (1.6-8.9); Nucleated Red Blood Cells 2.1 /100 WBC (0); Segmented Neutrophils % 53.2 %; White Blood Count 2.4 K/mcL (4.3-11.1)
[2021-05-15 05:11] LABS: Platelet Count 96 K/mcL (140-400)
[2021-05-15] MEDS: *HR* Heparin 5,000 UNIT/ML VIAL SQ SCH ×2 (05:20→17:30)
[2021-05-15 05:29] LABS: Albumin 4.2 g/dL (3.5-5.7); Albumin/Globulin Ratio 1.9 (1.1-2.2); Bilirubin,Total 0.5 mg/dL (0.3-1.0); Calcium 8.6 mg/dL (8.6-10.3); Globulin 2.2 g/dL (2.4-3.5); Potassium 4.1 mEq/L (3.5-5.1); Total Protein 6.4 g/dL (6.4-8.9)
[2021-05-15] MEDS: Insulin LISPRO 300 UNITS/3 ML VIAL SUBQ SCH ×3 (06:36→21:06)
[2021-05-15] MEDS: Piperacillin/Tazobactam 3.375 GM in 0.9 % Sodium Chloride Mini Bag 100 ML IVPB SCH ×2 (09:38→16:27)
[2021-05-15] MEDS: predniSONE 5 MG TABLET PO SCH (12:39)
[2021-05-15] MEDS ORDERED: (Bethanechol Chloride [Urecholine] 5 MG Tablet) PO SCH (17:00)
[2021-05-15] MEDS: Zinc Sulfate 220 MG CAPSULE PO SCH (17:31)
[2021-05-15] MEDS: Gabapentin 300 MG CAPSULE PO SCH (21:04)
[2021-05-15] MEDS: ursodioL 300 MG CAPSULE PO SCH (21:04)
[2021-05-15] MEDS: traZODone 50 MG TABLET PO SCH (21:04)
[2021-05-15] MEDS: rOPINIRole 0.25 MG TABLET PO SCH (21:04)
[2021-05-15] MEDS: Magnesium Oxide 400 MG TABLET PO SCH (21:04)
[2021-05-15] MEDS: Melatonin 3 MG TABLET PO SCH (21:05)
[2021-05-16] MEDS: Piperacillin/Tazobactam 3.375 GM in 0.9 % Sodium Chloride Mini Bag 100 ML IVPB SCH ×3 (00:09→17:12)
[2021-05-16] MEDS: *HR* Heparin 5,000 UNIT/ML VIAL SQ SCH ×2 (05:16→17:13)
[2021-05-16] MEDS: Insulin LISPRO 300 UNITS/3 ML VIAL SUBQ SCH ×4 (08:42→20:57)
[2021-05-16] MEDS: ursodioL 300 MG CAPSULE PO SCH ×2 (08:54→21:03)
[2021-05-16] MEDS: predniSONE 5 MG TABLET PO SCH ×2 (08:55→10:26)
[2021-05-16] MEDS: Magnesium Oxide 400 MG TABLET PO SCH ×2 (08:55→21:03)
[2021-05-16] MEDS: Gabapentin 300 MG CAPSULE PO SCH ×2 (08:55→21:03)
[2021-05-16] MEDS: Aspirin 81 MG TAB.CHEW PO SCH (08:56)
[2021-05-16] MEDS: allopurinoL 100 MG TABLET PO SCH (08:56)
[2021-05-16] MEDS: BuPROPion XL (24 HR) 150 MG TABLET PO SCH (08:56)
[2021-05-16] MEDS: Tacrolimus [Prograf] 1 MG PO SCH ×2 (08:57→21:04)
[2021-05-16] MEDS: [UNRECOGNIZED DRUG - OTHER] PO SCH (08:57)
[2021-05-16] MEDS: VALGANCICLOVIR HCL 450 MG PO SCH (09:03)
[2021-05-16] MEDS: Zinc Sulfate 220 MG CAPSULE PO SCH (17:12)
[2021-05-16] MEDS: rOPINIRole 0.25 MG TABLET PO SCH (21:03)
[2021-05-16] MEDS: QUEtiapine Fumarate 100 MG TABLET PO SCH (21:03)
[2021-05-16] MEDS: traZODone 50 MG TABLET PO SCH (21:03)
[2021-05-16] MEDS: Melatonin 3 MG TABLET PO SCH (21:03)
[2021-05-17] MEDS ORDERED: Piperacillin/Tazobactam 3.375 GM VIAL ONE (00:28)
[2021-05-17] MEDS: Piperacillin/Tazobactam 3.375 GM in 0.9 % Sodium Chloride Mini Bag 100 ML IVPB SCH ×3 (00:54→15:30)
[2021-05-17 05:27] LABS: Basophils % 0.8 %; Eosinophils % 2.4 %; Hemoglobin 10.5 g/dL (12.9-16.9)
[2021-05-17 05:29] LABS: Eosinophils # 0.1 K/mcL (0.0-0.6); Immature Granulocytes % 1.6 % (0-4); Immature Platelets 0.8 % (1.1-6.1); Lymphocytes # 0.9 K/mcL (0.6-4.6); Lymphocytes % 34.5 %; Mean Corpuscular HGB Conc 36.2 g/dL (31.6-35.5); Mean Corpuscular Hemoglobin 30.3 pg (28.0-33.3); Mean Corpuscular Volume 83.8 fL (83.0-100.0); Mean Platelet Volume 9.3 fL (9.4-12.4); Monocytes # 0.3 K/mcL (0.0-1.3); Monocytes % 12.9 %; Neutrophils # 1.2 K/mcL (1.6-8.9); Platelet Count 109 K/mcL (140-400); Red Blood Count 3.46 M/mcL (4.19-5.50); Segmented Neutrophils % 47.8 %; White Blood Count 2.6 K/mcL (4.3-11.1)
[2021-05-17 05:38] LABS: Potassium 4.2 mEq/L (3.5-5.1)
[2021-05-17] MEDS: *HR* Heparin 5,000 UNIT/ML VIAL SQ SCH ×2 (06:11→17:11)
[2021-05-17] MEDS: Insulin LISPRO 300 UNITS/3 ML VIAL SUBQ SCH ×3 (07:53→16:00)
[2021-05-17] MEDS: predniSONE 5 MG TABLET PO SCH (08:14)
[2021-05-17] MEDS: Aspirin 81 MG TAB.CHEW PO SCH (08:14)
[2021-05-17] MEDS: allopurinoL 100 MG TABLET PO SCH (08:15)
[2021-05-17] MEDS: VALGANCICLOVIR HCL 450 MG PO SCH (08:15)
[2021-05-17] MEDS: ursodioL 300 MG CAPSULE PO SCH ×2 (08:15→20:22)
[2021-05-17] MEDS: [UNRECOGNIZED DRUG - OTHER] PO SCH (08:15)
[2021-05-17] MEDS: BuPROPion XL (24 HR) 150 MG TABLET PO SCH (08:15)
[2021-05-17] MEDS: Magnesium Oxide 400 MG TABLET PO SCH ×2 (08:15→20:22)
[2021-05-17] MEDS: Tacrolimus [Prograf] 1 MG PO SCH ×2 (08:15→21:44)
[2021-05-17] MEDS: Gabapentin 300 MG CAPSULE PO SCH ×2 (08:15→20:22)
[2021-05-17] MEDS: Zinc Sulfate 220 MG CAPSULE PO SCH (17:10)
[2021-05-17] MEDS: Lactobacillus 1 EACH CAP.SPRINK PO SCH (20:22)
[2021-05-17] MEDS: rOPINIRole 0.25 MG TABLET PO SCH (20:22)
[2021-05-17] MEDS: metroNIDAZOLE 500 MG TABLET PO SCH (20:24)
[2021-05-17] MEDS: cefTRIAXone 2,000 MG in 0.9 % Sodium Chloride 20 ML IVP SCH (20:25)
[2021-05-17] MEDS: traZODone 50 MG TABLET PO SCH (21:43)
[2021-05-17] MEDS: QUEtiapine Fumarate 100 MG TABLET PO SCH (21:43)
[2021-05-17] MEDS: Melatonin 3 MG TABLET PO SCH (21:43)
[2021-05-18 03:55] LABS: Hemoglobin 10.3 g/dL (12.9-16.9); Red Cell Distribution Width 15.9 % (11.5-14.5); Segmented Neutrophils % 50.4 %
[2021-05-18 03:57] LABS: Basophils % 0.8 %; Eosinophils % 1.5 %; Hematocrit 30.3 % (37.5-50.1); Lymphocytes # 0.8 K/mcL (0.6-4.6); Lymphocytes % 31.9 %; Mean Corpuscular Hemoglobin 28.6 pg (28.0-33.3); Mean Corpuscular Volume 84.2 fL (83.0-100.0); Mean Platelet Volume 9.2 fL (9.4-12.4); Monocytes # 0.4 K/mcL (0.0-1.3); Monocytes % 15.4 %; Neutrophils # 1.3 K/mcL (1.6-8.9); Nucleated Red Blood Cells 0.8 /100 WBC (0); Platelet Count 109 K/mcL (140-400); White Blood Count 2.6 K/mcL (4.3-11.1)
[2021-05-18 04:12] LABS: Calcium 8.8 mg/dL (8.6-10.3); Potassium 4.1 mEq/L (3.5-5.1)
[2021-05-18] MEDS: *HR* Heparin 5,000 UNIT/ML VIAL SQ SCH (04:42)
[2021-05-18] MEDS: Insulin LISPRO 300 UNITS/3 ML VIAL SUBQ SCH ×3 (04:42→12:30)
[2021-05-18 06:54] VITALS: O2SAT 98
[2021-05-18] MEDS: BuPROPion XL (24 HR) 150 MG TABLET PO SCH (09:10)
[2021-05-18] MEDS: ursodioL 300 MG CAPSULE PO SCH (09:10)
[2021-05-18] MEDS: Lactobacillus 1 EACH CAP.SPRINK PO SCH (09:10)
[2021-05-18] MEDS: metroNIDAZOLE 500 MG TABLET PO SCH ×2 (09:10→17:09)
[2021-05-18] MEDS: allopurinoL 100 MG TABLET PO SCH (09:10)
[2021-05-18] MEDS: Magnesium Oxide 400 MG TABLET PO SCH (09:10)
[2021-05-18] MEDS: predniSONE 5 MG TABLET PO SCH (09:11)
[2021-05-18] MEDS: Aspirin 81 MG TAB.CHEW PO SCH (09:11)
[2021-05-18] MEDS: Gabapentin 300 MG CAPSULE PO SCH (09:11)
[2021-05-18] MEDS: VALGANCICLOVIR HCL 450 MG PO SCH (09:12)
[2021-05-18] MEDS: [UNRECOGNIZED DRUG - OTHER] PO SCH (09:12)
[2021-05-18] MEDS: Tacrolimus [Prograf] 1 MG PO SCH (09:12)
[2021-05-18 11:39] VITALS: BP 117/57; PULSE 77; TEMP 98.1
[2021-05-18] MEDS: cefTRIAXone 2,000 MG in 0.9 % Sodium Chloride 20 ML IVP SCH (17:09)
== END 2021-05-18 17:23 | disposition home health service (06) | DRG 300 ==
LOC: EMEROOARM 16:59 → 3ANU 16:59 → SUATTDRO 22:31 → 3ANU 23:33 → SUATTDRO 05-16 12:15
PROVIDERS: ADMIT Internal Medicine; ATTEND Internal Medicine